=== PATIENT | female | born 1960 | race African-American/Black ===

== ENCOUNTER 2021-04-13 20:30 | Emergency (ER) | payer SELFPAY ==
[~2021-04-13] VITALS: Ht 172.7 cm; Wt 79.4 kg
[2021-04-13] MEDS ORDERED: ZITHROMAX500 MG PO (23:40)
[2021-04-13] MEDS ORDERED: CEFDINIR300 MG PO (23:40)
[2021-04-13] MEDS ORDERED: DEXAMETHASONE6 MG PO (23:42)
[2021-04-13] MEDS ORDERED: AZITHROMYCIN 250 MG TAB PO ONE (23:45)
[2021-04-13] MEDS ORDERED: DEXAMETHASONE SOD PHOS INJ 4 MG/ML SDV IM ONE (23:45)
[2021-04-13] MEDS ORDERED: CEFTRIAXONE 1 GM VIAL IM ONE (23:45)
[2021-04-13] MEDS ORDERED: LIDOCAINE HCL 1% LOCAL INJ 20 ML VIAL ONE (23:47)
[2021-04-13] MEDS ORDERED: AZITHROMYCIN 250 MG TAB ONE (23:47)
[2021-04-13] MEDS ORDERED: CEFTRIAXONE 1 GM VIAL ONE (23:47)
[2021-04-13] MEDS ORDERED: DEXAMETHASONE SOD PHOS INJ 4 MG/ML SDV ONE (23:47)
[2021-04-14 00:10] VITALS: BP 152/67
== END 2021-04-14 00:10 | disposition home or self-care (01) ==
LOC: FSED 22:32
DX: R05.9 Cough, unspecified (principal); J18.9 Pneumonia, unspecified organism; D86.9 Sarcoidosis, unspecified; Z20.822 Contact with and (suspected) exposure to COVID-19
CPT/HCPCS: 71046; 99283; J0696; J1100; J2001